=== PATIENT | male | born 1955 | race Caucasian/White ===

== ENCOUNTER → 2018-02-25 | Outpatient (CLI) | payer OTHER ==
--- NOTE | 2018-03-03 14:31 | Polysomnography ---
DATE OF STUDY: February 25, 2018 HISTORY OF PRESENT ILLNESS: The patient reports a history of snoring and difficulty maintaining sleep at night. He also complains of daytime somnolence. INTERPRETATION: The patient came to the laboratory for a split-night study but did not meet the criteria for a split-night study. He slept for 230.5 minutes out of 414.5 minutes. The sleep efficiency was 55.6%. The sleep onset latency was 22 minutes 56 seconds. The patient spent 26.5% of the night in REM sleep which was 11.5% of the night. There were a total of 1 apneic event and 3 hypopneic events. The apnea-hypopnea index was 1 event per hour. The minimal heart rate was 42 beats per minute. The patient spent 23.4% of the night in the supine position and the remainder of the night in the nonsupine position. There were no arrhythmias. The Wellford Sleep Score was 12. IMPRESSION 1. No evidence of obstructive sleep apnea on this study. 2. Snoring. 3. Increased daytime somnolence. RECOMMENDATIONS 1. Review the patient's medications for any medicines with sedating side effects. 2. Consider medical causes of daytime fatigue and somnolence such as anemia, thyroid disease or cardiopulmonary disease. 3. Depending on the clinical scenario, consider a multiple sleep latency test to rule out narcolepsy or idiopathic hypersomnolence. Job#: [id number]
== END ==
LOC: EDSEX → SLEEP 19:11
PROVIDERS: ATTEND Internal Medicine Critical Care Medicine
DX: G47.33 Obstructive sleep apnea (adult) (pediatric) (principal)
CPT/HCPCS: 95810

== ENCOUNTER 2018-05-18 10:24 | Emergency (ER) | payer OTHER ==
[~2018-05-18] VITALS: Ht 170.2 cm; Wt 83.9 kg
--- OUTSIDE RECORDS SUMMARY | 2018-05-18 10:26 | XMS REPORT ---
Author Author [facility] Address Unknown Phone Unavailable Care Team Providers Care Whizzer Operator Name Role Phone Unavailable Unavailable Payers Payer Name Policy Type Policy Number Effective Date Expiration Date Problems This patient has no known problems. Allergies, Adverse Reactions, Alerts Allergy Name Allergy Type Status Severity Reaction(s) Onset Date Inactive Date Treating Clinician Comments No Known Allergies DA Active U 2018-01-25 00:00:00 No Known Allergies DA Active U 2017-12-28 00:00:00 No Known Allergies DA Active U 2017-09-30 00:00:00 Medications This patient has no known medications.
--- OUTSIDE RECORDS SUMMARY | 2018-05-18 10:26 | XMS REPORT | Clinical Summary ---
Author [facility] Address Unknown Phone Unavailable Care Team Providers Care Financial Planning Consultant Name Role Phone Yash Alvarado MD PCP Allergies No Known Allergies Medications End Date Status Medication Sig Dispensed Refills Start Date Active metFORMIN (GLUCOPHAGE) Take 1,000 mg 0 1,000 mg tablet by mouth 2 (two) times a day with meals. 09/07/2017 meloxicam (MOBIC) 15 mg Take 1 tablet 30 tablet 0 tablet (15 mg total) 7 by mouth daily. Active Problems No known active problems Family History Medical History Relation Name Comments Cancer Father Cancer Mother Relation Name Status Comments Father Mother Social History Date Tobacco Use Types Packs/Day Years Used Current Every Day Smoker Smokeless Tobacco: Never Used Alcohol Use Drinks/Week oz/Week Comments No Sex Assigned at Date Recorded Not on file Industry Job Start Date Occupation Not on file Not on file Not on file Travel End Travel History Travel Start No recent travel history available. Last Filed Vital Signs Not on file Plan of Treatment Health Maintenance Due Date Last Done Comments COLON CANCER SCREENING 2003 SHINGLES VACCINES (1 of 2003 2) INFLUENZA VACCINE 11/02/2017 PNEUMOCOCCAL 2018 POLYSACCHARIDE VACCINE AGE 65 AND OVER PNEUMOCOCCAL-13 2018 Results Not on fileafter 05/17/2017 Insurance Payer Benefit Subscriber ID Type Phone Address Plan / Group COVENTRY/[employer] COVENTRY xxxxxxxxx PPO /[employer] Advance Directives Patient has advance care planning documents on file. For more information, pleas e contact: Bird Horne [address] [place] [address]
== END 2018-05-18 11:42 | disposition left against medical advice (07) ==
LOC: ER 10:24
DX: M79.672 Pain in left foot (principal)